=== PATIENT | female | born 1990 | race Caucasian/White ===

== ENCOUNTER 2016-10-24 13:57 | Inpatient (IN) | payer BC ==
[2016-10-24] VITALS (29 sets, daily range): BP systolic 111–147; BP diastolic 60–94; PULSE 57–110; TEMP 97.7
[~2016-10-24] VITALS: Ht 172.7 cm; Wt 80.5 kg
[2016-10-24] MEDS ORDERED: LINSEED OIL 1 ML1 ML (14:24)
[2016-10-24] MEDS ORDERED: PRENATAL1 TA7 PO (14:24)
[2016-10-24] MEDS ORDERED: OSCAL 500 TAB500 MG PO (14:25)
[2016-10-24 16:03] LABS: BASO % 0.4 % (0.0-2.0); EOS # 0.3 (0.0-0.7); HEMOGLOBIN 12.1 g/dl (12.5-16.0); LYMPH # 2.6 (1.2-3.4); MEAN CELL VOLUME 90 fl (80.0-100.0); MEAN CORPUSCULAR HEMOGLOBIN 32 pg (27.0-31.0); MEAN CORPUSCULAR HGB CONC 35 g/dl (33.0-37.0); MEAN PLATELET VOLUME 12.1 fl (7.4-10.4); MONO # 0.7 (0.1-0.6); PLATELET COUNT 164 K/mm3 (130-400); RED BLOOD COUNT 3.84 M/mm3 (4.10-5.30); WHITE BLOOD COUNT 9.7 K/mm3 (4.8-10.8)
[2016-10-24 16:16] LABS: HEMATOCRIT 34.4 % (37.0-47.0)
[2016-10-25] VITALS (27 sets, daily range): BP systolic 103–138; BP diastolic 61–95; PULSE 52–112; TEMP 97.9–98.3
[2016-10-26 06:59] VITALS: BP 104/64; PULSE 77; TEMP 97.6
[2016-10-26 17:00] VITALS: BP 123/75; PULSE 86; TEMP 97.5
[2016-10-26 19:00] VITALS: BP 126/81; PULSE 88; TEMP 97.8
[2016-10-27 08:04] VITALS: BP 122/63; PULSE 58; TEMP 98.1
[2016-10-27] MEDS ORDERED: PERCOCET 325 MG1 TA2 PO (09:17)
[2016-10-27] MEDS ORDERED: IBU800 M1 PO (09:17)
== END 2016-10-27 13:12 | disposition home or self-care (01) | DRG 775 ==
LOC: LDRO 13:57 → LDR 15:17 → OB 10-25 06:49
PROVIDERS: Obstetrics & Gynecology
PROC: 10E0XZZ Delivery of Products of Conception, External Approach (ICD-10-PCS; principal; 2016-10-25)
PROC: 0KQM0ZZ Repair Perineum Muscle, Open Approach (ICD-10-PCS; 2016-10-25)
DX: O42.02 Full-term premature rupture of membranes, onset of labor within 24 hours of rupture (principal); O36.0130 Maternal care for anti-D [Rh] antibodies, third trimester, not applicable or unspecified; O70.1 Second degree perineal laceration during delivery; Z3A.39 39 weeks gestation of pregnancy; Z37.0 Single live birth
CPT/HCPCS: J2405; J2590; J2791; J7120